=== PATIENT | male | born 1940 | race Caucasian/White ===

== ENCOUNTER 2016-10-15 10:52 | Emergency (ER) | payer MEDICARE, MEDICAID ==
[~2016-10-15] VITALS: Ht 170.2 cm; Wt 79.0 kg
[2016-10-15] MEDS ORDERED: CLINDAMYCIN 600 MG in DEXTROSE 5% WATER 50 ML IV ONE (12:30)
[2016-10-15] MEDS ORDERED: ACETAMINOPHEN 500MG TABLET PO ONE (12:45)
[2016-10-15] MEDS ORDERED: BACITRACIN ZINC 15GM TUBE TOP ONE (14:15)
[2016-10-15] MEDS ORDERED: BACITRACIN ZINC OINT UDPKT TOP ONE (14:15)
[2016-10-15 14:43] VITALS: BP 110/69
== END 2016-10-15 16:30 | disposition home or self-care (01) ==
LOC: ER 12:54
DX: S81.812A Laceration without foreign body, left lower leg, initial encounter (principal); L03.116 Cellulitis of left lower limb; I10 Essential (primary) hypertension; Z59.0 Homelessness; X99.1XXA Assault by knife, initial encounter; Y93.89 Activity, other specified; Y92.89 Other specified places as the place of occurrence of the external cause
CPT/HCPCS: 96365; 99284; J3490; J7060